=== PATIENT | female | born 1980 | race Caucasian/White ===

== ENCOUNTER 2020-02-20 15:13 | Emergency (ER) | payer OTHER ==
[2020-02-20 15:21] VITALS: TEMP 98.2
[2020-02-20] MEDS ORDERED: MORPHINE SULFATE 4 MG/ML SYRINGE IM STA ×2 (15:36→17:34)
[2020-02-20] MEDS ORDERED: DIAZEPAM 5 MG/ML 2 ML INJ IM STA (15:37)
--- NOTE | 2020-02-20 15:45 | ED ---
General Adult HPI - General Chief complaint: Extremity Injury, Lower Stated complaint: fall/hip & back pain Time Seen by Provider: 02/20/20 15:23 Source: patient Mode of arrival: wheelchair Limitations: no limitations - History of Present Illness Initial comments: Patient is a 39-year-old female with history of herniated lumbar disc presenting to the emergency room with a chief complaint of back pain. Patient states she was holding an object in her hand as she was walking backwards, lost her footing and fell directly on her buttocks. Patient reports sudden onset of pain with pain mostly located on right paraspinal region and urine sent radiating distally along the right lower extremity to the popliteal region. Patient reports it feels like a stabbing, sharp pain. Patient also reports pain in the mid spinal lumbar region. Patient reports taking ibuprofen at home with minimal improvement of symptoms. He states the only alleviating factor is pressure under her right hip. Denies saddle anesthesia, urinary or bowel incontinence. Patient states there is a "0 chance for ". - Related Data Previous Rx's Medication Instructions Recorded tiZANidine [Zanaflex] 4 mg PO Q6HR PRN #24 tab 02/20/20 Allergies Allergy/AdvReac Type Severity Reaction Status Date / Time amoxicillin Allergy Rash/Hives Verified 02/20/20 15:20 Review of Systems ROS Statement: Those systems with pertinent positive or pertinent negative responses have been documented in the HPI. ROS Other: All systems not noted in ROS Statement are negative. Past Medical History Past Medical History: No Reported History History of Any Multi-Drug Resistant Organisms: None Reported Past Surgical History: Cholecystectomy Additional Past Surgical History / Comment(s): hand surgery Past Anesthesia/Blood Transfusion Reactions: No Reported Reaction Past Psychological History: No Psychological Hx Reported Smoking Status: Never smoker Past Drug Use History: None Reported - Past Family History Mother Family Medical History: No Reported History General Exam Limitations: no limitations General appearance: alert, in no apparent distress Head exam: Present: atraumatic, normocephalic, normal inspection Eye exam: Present: normal appearance, PERRL, EOMI Pupils: Present: normal accommodation ENT exam: Present: normal exam Neck exam: Present: normal inspection, full ROM Respiratory exam: Present: normal lung sounds bilaterally Cardiovascular Exam: Present: regular rate, normal rhythm, normal heart sounds Extremities exam: Present: normal inspection, full ROM Back exam: Present: normal inspection, tenderness (Tenderness along the vertebral and right paraspinal region of the lumbar spine. Positive leg raise test. Lumbar radiculopathy type symptoms going to the right lower extremity.), muscle spasm, paraspinal tenderness, vertebral tenderness. Absent: full ROM (Limited range of motion due to pain) Neurological exam: Present: alert, oriented X3 Psychiatric exam: Present: normal affect, normal mood Skin exam: Present: warm, dry, intact, normal color Course Vital Signs 02/20/20 02/20/20 15:19 17:39 Temperature 98.2 F Pulse Rate 85 76 Respiratory 16 18 Rate Blood Pressure 139/99 120/87 O2 Sat by Pulse 98 99 Oximetry Medical Decision Making - Medical Decision Making Patient is a 39-year-old female with history of disc herniation presenting to the emergency department chief complaint of fall. Patient lost her footing and fell back on her buttocks and caused immediate pain along the right lower extremity and lumbar region. Patient denies head injury or loss of consciousness. Patient was given analgesia, Lidoderm patch and antispasmodic medication. CT of lumbar and pelvis was obtained showing disc herniation in the upper and lower lumbar spine. No cauda equina. No red flags. On reevaluation patient reports improvement in symptoms. No signs of fractures or dislocations. Patient will be discharged with a Tylenol 3 starter pack and muscle relaxers. Patient advised about the possible side effects of the medications and not to take them together. Advised to alternate between Tylenol and Motrin for pain control. Advised to follow with librarian specialist. Return to emergency department if symptoms worsen. Case discussed with physician. Disposition Clinical Impression: Fall, Lumbar radiculopathy, right Disposition: HOME SELF-CARE Condition: Good Instructions (If sedation given, give patient instructions): Lumbar Radiculopathy (ED), Lower Back Exercises (ED) Additional Instructions: Follow-up with orthopedic doctor. Return to emergency department if symptoms worsen. Take prescribed medication as directed. Prescriptions: tiZANidine [Zanaflex] 4 mg PO Q6HR PRN #24 tab PRN Reason: Pain Is patient prescribed a controlled substance at d/c from ED?: No Referrals: Jacquie Apple MD [Primary Care Provider] - 1-2 days Time of Disposition: 17:20
--- NOTE | 2020-02-20 16:42 | CT ---
EXAMINATION TYPE: CT lumbar spine wo con DATE OF EXAM: 02/20/2020 COMPARISON: None HISTORY: low back pain following fall CT DLP: 277.5 mGycm Automated exposure control for dose reduction was used. Multiple axial sections were obtained from T11 to S2 vertebra with no contrast. The lumbar vertebra have normal alignment. There is mild narrowing of L4-5 and L5-S1 disc spaces. The posterior elements are intact. There is no compression fracture. There is small posterior disc bulgi ng at L4-5 and L5-S1. There is no lumbar paraspinal mass. I see no focal bone destruction. The sacroi liac joints are intact. There are left renal calculi that measure up to 8 mm. There is no hydronephro sis. IMPRESSION: Spondylotic changes with posterior disc mild bulging and herniation at L4-5 and L5-S1. No spinal sten osis. No compression fracture. Nonobstructing left renal calculi.
--- NOTE | 2020-02-20 16:48 | CT ---
EXAMINATION TYPE: CT pelvis wo con DATE OF EXAM: 02/20/2020 COMPARISON: None HISTORY: right hip pain following fall CT DLP: 593.4 mGycm Automated exposure control for dose reduction was used. Back pain. Right hip pain. Fall. Multiple axial sections were obtained from the iliac crests to the subtrochanteric femurs without con trast. There are bilateral renal calculi that measure up to 8 mm. Visualized kidneys show no hydronephrosis or hydroureter. There is no sign of retroperitoneal adenopathy. There is narrowing of L4-5 and L5-S1 disc spaces. The sacroiliac joints appear normal. The posterior elements appear intact. There is no l umbar paraspinal mass. The acetabula appear normal. The proximal femurs are intact. There is no sign of hip dysplasia. The pelvic ring is intact. Bladder distends smoothly. Uterus is anteverted. There is no evidence of a pelvic solid mass. There i s no free fluid in the pelvis. There is 2.5 cm cyst on the left ovary. IMPRESSION: No fracture. No sign of traumatic injury of the pelvis. Nonobstructing renal calculi. Left ovarian cy st.
[2020-02-20] MEDS ORDERED: LIDOCAINE 5% PATCH TOPICAL STA (17:18)
[2020-02-20] MEDS ORDERED: ACET/COD 300 MG/30 MG STARTER PACK 6 TAB BTL PO STA (17:18)
[2020-02-20] MEDS ORDERED: MORPHINE SULFATE 4 MG/ML SYRINGE IVP STA (17:26)
[2020-02-20 17:40] VITALS: BP 120/87; PULSE 76; RESP 18
== END 2020-02-20 17:43 | disposition home or self-care (01) ==
LOC: EC 15:13
DX: M51.16 Intervertebral disc disorders with radiculopathy, lumbar region (principal); Z88.0 Allergy status to penicillin
CPT/HCPCS: 72192; 72131; 99283; 96372 ×3; J2270; J3360

== ENCOUNTER → 2020-12-28 | Outpatient (CLI) | payer OTHER ==
--- NOTE | 2020-12-28 15:35 | US ---
EXAMINATION TYPE: US thyroid st tissue head/neck DATE OF EXAM: 12/28/2020 COMPARISON: NONE CLINICAL HISTORY: E07.9 Thyroid condition. hair loss. weight loss. GLAND SIZE: Right Lobe: 4.8 x 1.6 x 1.4 cm Overall Parenchyma: heterogenous Left Lobe: 5.5 x 1.7 x 1.4 cm Overall Parenchyma: heterogeneous Isthmus Thickness: 0.4 cm NODULES RIGHT: # of nodules measured on right: 2 1. 0.5 X 0.5 x 0.5 cm, upper mid, solid or almost completely solid, hypoechoic nodule, which is wid e as tall, with smooth margins, without echogenic foci. Prior size: no prior 2. 0.5 X 0.4 x 0.4 cm, lower lateral, solid or almost completely solid, isoechoic nodule, which is wide as tall, with smooth margins, without echogenic foci. Prior size: no prior LEFT: # of nodules measured on left: 0 ISTHMUS: # of nodules measured in the isthmus: 0 Bilateral neck scanned, no evidence of lymphadenopathy. IMPRESSION: Glandular heterogeneity and subcentimeter nonspecific nodules.
== END | disposition home or self-care (01) ==
LOC: RADUSWWP 14:13
PROVIDERS: ATTEND Obstetrics & Gynecology
DX: E04.2 Nontoxic multinodular goiter (principal)
CPT/HCPCS: 76536

== ENCOUNTER 2021-05-12 04:25 | Emergency (ER) | payer OTHER ==
[2021-05-12] MEDS ORDERED: predniSONE 20 MG TAB PO STA (05:33)
--- NOTE | 2021-05-12 06:18 | ED ---
Neck Injury/Pain HPI - General Chief Complaint: Neck Pain/Injury Stated Complaint: Neck Pain Time Seen by Provider: 05/12/21 04:40 Mode of arrival: ambulatory - History of Present Illness MD Complaint: neck pain Onset/Timin -: year(s) Radiation: right upper extremity, left upper extremity Severity: moderate Quality: dull, aching Consistency: constant Improves With: none Worsens With: movement of neck Context: recent chiropractic manipulation Associated Symptoms: numbness, tingling - Related Data Previous Rx's Medication Instructions Recorded tiZANidine [Zanaflex] 4 mg PO Q6HR PRN #24 tab 02/20/20 Acetaminophen-Codeine 300-30mg 1 tab PO Q4H PRN #20 tablet 05/12/21 [Tylenol w/codeine #3] Gabapentin [Neurontin] 100 mg PO TID #60 cap 05/12/21 predniSONE 60 mg PO DAILY #30 tab 05/12/21 Allergies Allergy/AdvReac Type Severity Reaction Status Date / Time amoxicillin Allergy Rash/Hives Verified 05/12/21 04:35 Review of Systems ROS Statement: Those systems with pertinent positive or pertinent negative responses have been documented in the HPI. ROS Other: All systems not noted in ROS Statement are negative. Constitutional: Denies: fever, chills, weakness Respiratory: Denies: cough, dyspnea Cardiovascular: Denies: chest pain, palpitations Musculoskeletal: Reports: back pain Skin: Denies: rash, lesions Neurological: Reports: as per HPI, numbness, paresthesias. Denies: headache, weakness Past Medical History Past Medical History: No Reported History Additional Past Medical History / Comment(s): back problems History of Any Multi-Drug Resistant Organisms: None Reported Past Surgical History: Cholecystectomy Additional Past Surgical History / Comment(s): hand surgery Past Anesthesia/Blood Transfusion Reactions: No Reported Reaction Past Psychological History: No Psychological Hx Reported Smoking Status: Current every day smoker Past Alcohol Use History: None Reported Past Drug Use History: None Reported - Past Family History Mother Family Medical History: No Reported History General Exam General appearance: alert, in no apparent distress Head exam: Present: atraumatic, normocephalic Eye exam: Present: normal appearance. Absent: scleral icterus, conjunctival injection ENT exam: Present: normal oropharynx Neck exam: Present: normal inspection, full ROM. Absent: tenderness, meningismus Respiratory exam: Present: normal lung sounds bilaterally. Absent: respiratory distress, wheezes, rales, rhonchi, stridor Cardiovascular Exam: Present: regular rate, normal rhythm, normal heart sounds. Absent: systolic murmur, diastolic murmur, rubs, gallop GI/Abdominal exam: Present: soft. Absent: distended, tenderness, guarding, rebound, rigid, mass Extremities exam: Present: normal inspection, normal capillary refill Back exam: Absent: paraspinal tenderness, vertebral tenderness Neurological exam: Present: alert. Absent: motor sensory deficit Skin exam: Present: warm, dry, intact, normal color. Absent: rash Course Vital Signs 05/12/21 04:32 Temperature 98.1 F Pulse Rate 92 Respiratory 18 Rate Blood Pressure 139/88 O2 Sat by Pulse 100 Oximetry Disposition Clinical Impression: Cervical radiculopathy, Neck pain Disposition: HOME SELF-CARE Condition: Good Instructions (If sedation given, give patient instructions): Cervical Radiculopathy (ED) Prescriptions: Gabapentin [Neurontin] 100 mg PO TID #60 cap predniSONE 60 mg PO DAILY #30 tab Acetaminophen-Codeine 300-30mg [Tylenol w/codeine #3] 1 tab PO Q4H PRN #20 tablet PRN Reason: Pain Is patient prescribed a controlled substance at d/c from ED?: No Referrals: Jacquie Apple MD [Primary Care Provider] - 1-2 days Sumeet Barrientos DO [Doctor of Osteopathic Medicine] - 1-2 days
--- NOTE | 2021-05-12 06:19 | CT ---
EXAMINATION TYPE: CT cervical spine wo con DATE OF EXAM: 05/12/2021 COMPARISON: None HISTORY: neck pain w/o injury. no prior on PACS CT DLP: 264.8 mGycm Automated exposure control for dose reduction was used. Images obtained from the level of the sella turcica to the T3 vertebra without contrast. Cervical vertebra show some mild straightening. There is some degenerative disc space narrowing at C6 -7 with anterior mild spurring. The posterior elements are intact. Facet joints are intact. There is no evidence of a fracture. The skull base appears intact. There is normal aeration of the mastoid sin uses. I see no focal bone destruction. IMPRESSION: There is some ordinary spondylotic change at C6-7. No fracture seen.
[2021-05-12 06:51] VITALS: BP 150/90; PULSE 57; RESP 16; TEMP 97.7
== END 2021-05-12 07:01 | disposition home or self-care (01) ==
LOC: EC 04:25
DX: M54.12 Radiculopathy, cervical region (principal); M54.2 Cervicalgia; F17.200 Nicotine dependence, unspecified, uncomplicated; Z88.0 Allergy status to penicillin
CPT/HCPCS: 72125; 99284; J7512

== ENCOUNTER 2021-07-03 08:47 | Emergency (ER) | payer OTHER ==
[2021-07-03] MEDS ORDERED: ONDANSETRON 4 MG/2 ML VIAL IVP STA (09:27)
[2021-07-03] MEDS ORDERED: SODIUM CHLORIDE 0.9% 1,000 ML IV STA (09:27)
[2021-07-03] MEDS ORDERED: KETOROLAC 15 MG/ML 1 ML VIAL IVP STA (09:27)
--- NOTE | 2021-07-03 09:35 | ED ---
General Adult HPI - General Chief complaint: Abdominal Pain Stated complaint: Back/side pain/blood in urine Time Seen by Provider: 07/03/21 09:18 Source: patient, RN notes reviewed Mode of arrival: ambulatory Limitations: no limitations - History of Present Illness Initial comments: This is a 40-year-old female who presents to the emergency department a ccompanied by her spouse for evaluation of left flank pain, onset yesterday. States pain is intense, intermittent, and radiates into the back, left groin, and pelvis; also reports urinary frequency and hematuria this morning. Reports waves of nausea, denies vomiting. Patient states she knows she has an 8-10 mm kidney stone in the left side for which she was supposed to follow up with urology approximately a year ago, but did not do so due to time constraints. Patient denies any injury, trauma, fever, chills, chest pain, shortness of breath, constipation, and diarrhea. States last normal menstrual period was 3 weeks ago. Did not attempt to treat pain prior to arrival. - Related Data Previous Rx's Medication Instructions Recorded Ibuprofen [Motrin] 600 mg PO Q8HR PRN #20 tab 07/03/21 Ondansetron Odt [Zofran Odt] 4 mg PO Q8HR PRN #10 tab 07/03/21 Tamsulosin [Flomax] 0.4 mg PO DAILY 7 Days #7 cap 07/03/21 Allergies Allergy/AdvReac Type Severity Reaction Status Date / Time amoxicillin Allergy Rash/Hives Verified 07/03/21 10:54 Review of Systems ROS Statement: Those systems with pertinent positive or pertinent negative responses have been documented in the HPI. ROS Other: All systems not noted in ROS Statement are negative. Past Medical History Past Medical History: No Reported History Additional Past Medical History / Comment(s): back problems, kidney stones History of Any Multi-Drug Resistant Organisms: None Reported Past Surgical History: Cholecystectomy Additional Past Surgical History / Comment(s): hand surgery, Breast Past Anesthesia/Blood Transfusion Reactions: No Reported Reaction Past Psychological History: No Psychological Hx Reported Smoking Status: Current every day smoker Past Alcohol Use History: None Reported Past Drug Use History: None Reported - Past Family History Mother Family Medical History: No Reported History General Exam Limitations: no limitations General appearance: alert, in no apparent distress (Well-developed, well- nourished female in no acute distress. Does appear restless and uncomfortable.) Respiratory exam: Present: normal lung sounds bilaterally. Absent: respiratory distress, wheezes, rales, rhonchi, stridor Cardiovascular Exam: Present: regular rate, normal rhythm, normal heart sounds. Absent: systolic murmur, diastolic murmur, rubs, gallop, clicks GI/Abdominal exam: Present: soft, tenderness, normal bowel sounds. Absent: distended Back exam: Present: CVA tenderness (R), CVA tenderness (L) Neurological exam: Present: alert, oriented X3 Psychiatric exam: Present: normal affect, normal mood Skin exam: Present: warm, dry, intact, normal color Course Vital Signs 07/03/21 07/03/21 07/03/21 08:58 10:37 12:58 Temperature 98.9 F 98.4 F Pulse Rate 87 62 78 Respiratory 20 16 18 Rate Blood Pressure 137/89 122/75 125/80 O2 Sat by Pulse 100 100 99 Oximetry - Reevaluation(s) Reevaluation #1: 07/03/21 10:00 Patient continues to complain of pain unchanged after medicating. Will place additional orders for pain control. 07/03/21 11:[address] at this time. Resting comfortably. States pain level is significantly improved and denies nausea Medical Decision Making - Medical Decision Making 40-year-old female with a history of kidney stones was evaluated for complaints of left flank pain, back pain, and hematuria. IV access was obtained, patient was hydrated, pain medication and nausea medicine given with improvement in symptoms. CT of the abdomen and pelvis confirms presence of bilateral renal calculi. Patient's case was reviewed with my attending. Pain and nausea medications were prescribed for this patient. Flomax was discussed as an option with patient and she is agreeABLE. Urine strainer provided and patient was instructed to follow up with her primary care provider and urology. Return parameters were discussed in detail. Patient verbalizes understanding and AGREES with this plan. - Lab Data Result diagrams: 07/03/21 09:43 07/03/21 09:43 Lab Results 07/03/21 07/03/21 07/03/21 Range/Units 09:43 09:43 09:43 WBC 9.3 (3.8-10.6) k/uL RBC 4.83 (3.80-5.40) m/uL Hgb 15.2 (11.4-16.0) gm/dL Hct 45.4 (34.0-46.0) % MCV 94.1 (80.0-100.0) fL MCH 31.5 (25.0-35.0) pg MCHC 33.5 (31.0-37.0) g/dL RDW 12.1 (11.5-15.5) % Plt Count 204 (150-450) k/uL MPV 7.6 Neutrophils % 78 % Lymphocytes % 15 % Monocytes % 4 % Eosinophils % 1 % Basophils % 0 % Neutrophils # 7.3 (1.3-7.7) k/uL Lymphocytes # 1.4 (1.0-4.8) k/uL Monocytes # 0.4 (0-1.0) k/uL Eosinophils # 0.1 (0-0.7) k/uL Basophils # 0.0 (0-0.2) k/uL Sodium 137 (137-145) mmol/L Potassium 4.2 (3.5-5.1) mmol/L Chloride 107 (98-107) mmol/L Carbon Dioxide 23 (22-30) mmol/L Anion Gap 7 mmol/L BUN 12 (7-17) mg/dL Creatinine 0.66 (0.52-1.04) mg/dL Est GFR (CKD-EPI)AfAm >90 (>60 ml/min/1.73 sqM) Est GFR (CKD-EPI)NonAf >90 (>60 ml/min/1.73 sqM) Glucose 95 (74-99) mg/dL Calcium 9.4 (8.4-10.2) mg/dL Total Bilirubin 0.6 (0.2-1.3) mg/dL AST 23 (14-36) U/L ALT 11 (4-34) U/L Alkaline Phosphatase 51 (38-126) U/L Total Protein 7.4 (6.3-8.2) g/dL Albumin 4.5 (3.5-5.0) g/dL Urine Color Yellow Urine Appearance Cloudy H (Clear) Urine pH 5.0 (5.0-8.0) Ur Specific [place] 1.019 (1.001-1.035) Urine Protein Trace H (Negative) Urine Glucose (UA) Negative (Negative) Urine Ketones Negative (Negative) Urine Blood Large H (Negative) Urine Nitrite Negative (Negative) Urine Bilirubin Negative (Negative) Urine Urobilinogen <2.0 (<2.0) mg/dL Ur Leukocyte Esterase Large H (Negative) Urine RBC 74 H (0-5) /hpf Urine WBC >182 H (0-5) /hpf Ur Squamous Epith Cells 3 (0-4) /hpf Urine Bacteria Rare H (None) /hpf Urine Mucus Rare H (None) /hpf Urine HCG, Qual (Not Detectd) 07/03/21 Range/Units 09:43 WBC (3.8-10.6) k/uL RBC (3.80-5.40) m/uL Hgb (11.4-16.0) gm/dL Hct (34.0-46.0) % MCV (80.0-100.0) fL MCH (25.0-35.0) pg MCHC (31.0-37.0) g/dL RDW (11.5-15.5) % Plt Count (150-450) k/uL MPV Neutrophils % % Lymphocytes % % Monocytes % % Eosinophils % % Basophils % % Neutrophils # (1.3-7.7) k/uL Lymphocytes # (1.0-4.8) k/uL Monocytes # (0-1.0) k/uL Eosinophils # (0-0.7) k/uL Basophils # (0-0.2) k/uL Sodium (137-145) mmol/L Potassium (3.5-5.1) mmol/L Chloride (98-107) mmol/L Carbon Dioxide (22-30) mmol/L Anion Gap mmol/L BUN (7-17) mg/dL Creatinine (0.52-1.04) mg/dL Est GFR (CKD-EPI)AfAm (>60 ml/min/1.73 sqM) Est GFR (CKD-EPI)NonAf (>60 ml/min/1.73 sqM) Glucose (74-99) mg/dL Calcium (8.4-10.2) mg/dL Total Bilirubin (0.2-1.3) mg/dL AST (14-36) U/L ALT (4-34) U/L Alkaline Phosphatase (38-126) U/L Total Protein (6.3-8.2) g/dL Albumin (3.5-5.0) g/dL Urine Color Urine Appearance (Clear) Urine pH (5.0-8.0) Ur Specific [place] (1.001-1.035) Urine Protein (Negative) Urine Glucose (UA) (Negative) Urine Ketones (Negative) Urine Blood (Negative) Urine Nitrite (Negative) Urine Bilirubin (Negative) Urine Urobilinogen (<2.0) mg/dL Ur Leukocyte Esterase (Negative) Urine RBC (0-5) /hpf Urine WBC (0-5) /hpf Ur Squamous Epith Cells (0-4) /hpf Urine Bacteria (None) /hpf Urine Mucus (None) /hpf Urine HCG, Qual Not Detected (Not Detectd) - Radiology Data Radiology results: report reviewed CT of the abdomen and pelvis without contrast was obtained. Impression per Dr. Calhoun includes nonobstructive bilateral nephrolithiasis. Disposition Clinical Impression: Renal calculus, bilateral, Nausea Disposition: HOME SELF-CARE Condition: Stable Instructions (If sedation given, give patient instructions): Kidney Stones (ED), Acute Nausea and Vomiting (ED) Additional Instructions: Rest, increase fluids, strain your urine, take medications as prescribed. Follow-up with your family doctor for recheck in one to 2 days. Call urology for further evaluation and treatment. Return to the emergency department with any new, worsening, or concerning symptoms. Prescriptions: Tamsulosin [Flomax] 0.4 mg PO DAILY 7 Days #7 cap Ibuprofen [Motrin] 600 mg PO Q8HR PRN #20 tab PRN Reason: Pain Ondansetron Odt [Zofran Odt] 4 mg PO Q8HR PRN #10 tab PRN Reason: Nausea Is patient prescribed a controlled substance at d/c from ED?: No Referrals: Jacquie Apple MD [Primary Care Provider] - 1-2 days En Vasquez MD [STAFF PHYSICIAN] - 1-2 days Time of Disposition: 12:35
[2021-07-03 09:51] LABS: Basophils % (A) 0 %; Eosinophils # (A) 0.1 k/uL (0-0.7); Eosinophils % (A) 1 %; HCT 45.4 % (34.0-46.0); HGB 15.2 gm/dL (11.4-16.0); Lymphocytes # (A) 1.4 k/uL (1.0-4.8); Lymphocytes % (A) 15 %; MCH 31.5 pg (25.0-35.0); MCHC 33.5 g/dL (31.0-37.0); MCV 94.1 fL (80.0-100.0); Mean Platelet Volume 7.6; Monocytes # (A) 0.4 k/uL (0-1.0); Monocytes % (A) 4 %; Neutrophils # (A) 7.3 k/uL (1.3-7.7); Neutrophils % (A) 78 %; Platelet Count 204 k/uL (150-450); RBC 4.83 m/uL (3.80-5.40); RDW 12.1 % (11.5-15.5); WBC 9.3 k/uL (3.8-10.6)
[2021-07-03 09:59] LABS: Appearance,Urine Cloudy (Clear); Bacteria,Urine Rare /hpf; Bilirubin,Urine Negative (Negative); Blood,Urine Large (Negative); Color,Urine Yellow; Glucose,Urine (UA) Negative (Negative); Ketones,Urine Negative (Negative); Leukocyte Esterase,Urine Large (Negative); Mucus,Urine Rare /hpf; Nitrite,Urine Negative (Negative); Protein,Urine Trace (Negative); RBC,Urine 74 /hpf (0-5); Specific Gravity,Urine 1.019 (1.001-1.035); Squamous Epithelial Cell,Urine 3 /hpf (0-4); Urobilinogen,Urine <2.0 mg/dL (<2.0); WBC,Urine >182 /hpf (0-5)
[2021-07-03 10:15] LABS: ALT 11 U/L (4-34); AST 23 U/L (14-36); African American GFR (CKD) >90 (>60 ml/min/1.73 sqM); Albumin 4.5 g/dL (3.5-5.0); Alkaline Phosphatase 51 U/L (38-126); Anion Gap 7 mmol/L; Blood Urea Nitrogen 12 mg/dL (7-17); Calcium 9.4 mg/dL (8.4-10.2); Carbon Dioxide 23 mmol/L (22-30); Chloride 107 mmol/L (98-107); Glucose 95 mg/dL (74-99); Non-African American GFR(CKD) >90 (>60 ml/min/1.73 sqM); Potassium 4.2 mmol/L (3.5-5.1); Sodium 137 mmol/L (137-145); Total Bilirubin 0.6 mg/dL (0.2-1.3); Total Protein 7.4 g/dL (6.3-8.2)
[2021-07-03] MEDS ORDERED: MORPHINE SULFATE 4 MG/ML SYRINGE IVP STA (10:24)
--- NOTE | 2021-07-03 11:18 | CT ---
EXAMINATION TYPE: CT abdomen pelvis wo con DATE OF EXAM: 07/03/2021 COMPARISON: None HISTORY: bilateral flank pain, hematuria Examination of the solid and hollow viscera is limited given the lack of contrast. FINDINGS: LUNG BASES: No evidence for nodule. No evidence for infiltrate. LIVER/GB: The gallbladder is unremarkable. No space-occupying hepatic lesion. PANCREAS: No pancreatic mass identified. No inflammatory process seen. SPLEEN: No evidence for splenomegaly. No intrasplenic lesions seen. ADRENALS: No adrenal nodules identified. No evidence for thickening. KIDNEYS: No evidence for renal mass. Bilateral nephrolithiasis. Proximally 4 calculi seen left kidney largest within the lower pole measures 5 mm. Multiple small calculi right kidney totaling approximat aquiles 3 in number with the largest seen within the lower pole measuring 2 mm. I do not see evidence for hydronephrosis or hydroureter. BOWEL: Appendix has a normal appearance. No evidence of bowel obstruction. No inflammatory process. Lymph nodes: No evidence for adenopathy greater than 1 cm. Abdominal aorta: Atheromatous changes seen. No evidence for aneurysm. Genital organs: No significant abnormality. Other: Degenerative changes lumbar spine. IMPRESSION: 1. Nonobstructive bilateral nephrolithiasis.
[2021-07-03] MEDS ORDERED: ACET/COD 300 MG/30 MG STARTER PACK 6 TAB BTL PO STA (12:34)
[2021-07-03 12:58] VITALS: BP 125/80; PULSE 78; RESP 18; TEMP 98.4
== END 2021-07-03 12:58 | disposition home or self-care (01) ==
LOC: EC 08:47
DX: N20.0 Calculus of kidney (principal); R11.0 Nausea; F17.200 Nicotine dependence, unspecified, uncomplicated; Z90.49 Acquired absence of other specified parts of digestive tract; Z88.0 Allergy status to penicillin
CPT/HCPCS: 36415; 80053; 85025; 81001; 81025; 87086; 74176; 99284; 96374; 96375; 96361; J2270; J2405; J1885

== ENCOUNTER → 2021-07-17 | Outpatient (CLI) | payer OTHER ==
--- NOTE | 2021-07-17 13:28 | MR ---
MRI CERVICAL SPINE: CLINICAL HISTORY: Neck pain. Stiffness and numbness in arms and hands. TECHNIQUE: Multiplanar, multisequence imaging of the cervical spine is performed without IV contrast. COMPARISON: CT cervical spine May 22, 2021. FINDINGS: Sagittal images of the cervical spine show the craniocervical junction to remain within nor mal limits. The cervical and upper thoracic spinal cord shows diminished AP diameter at C5-C6 level without abnormal signal. Loss of normal cervical curvature with slight grade 1 retrolisthesis C5 on C 6 and C6 on C7 redemonstrated. Moderate disc space narrowing C6-C7 level otherwise the vertebral body and intravertebral disk heights are normal. The bone marrow signal intensity shows some heterogeneo us Modic type II endplate changes inferior C6 vertebra. Axial images show C2-C3, C3-C4, C4-C5 levels all to remain within normal limits. Axial images at C5-C6 level shows broad-based left paracentral disc protrusion effacing antral left t hecal sac nearly up to ventral surface of spinal cord which is slightly flattened, mild right-sided n eural foraminal narrowing is present due to smaller right foraminal disc protrusion component. Axial images at C6-C7 level shows some posterior spur disc complex effacing anterior thecal sac and c ausing mild right-sided neural foraminal narrowing. Axial images at C7-T1 level appear within normal limits. IMPRESSION: Straightening of cervical spine with spondylolisthesis and degenerative changes C5-C6 and C6-C7 levels as detailed above.
== END | disposition home or self-care (01) ==
LOC: RADMRIMAIN 12:51
PROVIDERS: ATTEND Orthopaedic Surgery
DX: M50.322 Other cervical disc degeneration at C5-C6 level (principal); M50.323 Other cervical disc degeneration at C6-C7 level; M43.12 Spondylolisthesis, cervical region
CPT/HCPCS: 72141

== ENCOUNTER 2024-05-01 09:10 | Emergency (ER) | payer OTHER ==
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
[2024-05-01 10:31] LABS: Basophils % (A) 0 %; Eosinophils # (A) 0.1 k/uL (0-0.7); Eosinophils % (A) 1 %; HCT 45.6 % (34.0-46.0); Lymphocytes # (A) 0.9 k/uL (1.0-4.8); Lymphocytes % (A) 7 %; MCH 30.4 pg (25.0-35.0); MCHC 32.8 g/dL (31.0-37.0); MCV 92.7 fL (80.0-100.0); Mean Platelet Volume 7.7; Monocytes # (A) 0.3 k/uL (0-1.0); Monocytes % (A) 3 %; Neutrophils # (A) 10.6 k/uL (1.3-7.7); Neutrophils % (A) 89 %; Platelet Count 237 k/uL (150-450); RBC 4.92 m/uL (3.80-5.40); RDW 12.5 % (11.5-15.5); WBC 11.9 k/uL (3.8-10.6)
[2024-05-01] MEDS: SODIUM CHLORIDE 0.9% 1,000 ML IV STA (10:42)
[2024-05-01] MEDS: MECLIZINE 12.5 MG TAB PO STA (10:42)
[2024-05-01] MEDS: METOCLOPRAMIDE 5 MG/ML 2 ML VIAL IVP STA (10:44)
[2024-05-01 10:49] LABS: ALT 17 U/L (4-34); AST 24 U/L (14-36); African American GFR (CKD) >90 (>60 ml/min/1.73 sqM); Albumin 4.6 g/dL (3.5-5.0); Alcohol <10 mg/dL; Alkaline Phosphatase 61 U/L (38-126); Anion Gap 6 mmol/L; Blood Urea Nitrogen 10 mg/dL (7-17); Calcium 9.5 mg/dL (8.4-10.2); Carbon Dioxide 21 mmol/L (22-30); Chloride 113 mmol/L (98-107); Glucose 100 mg/dL (74-99); Non-African American GFR(CKD) >90 (>60 ml/min/1.73 sqM); Potassium 4.1 mmol/L (3.5-5.1); Sodium 140 mmol/L (137-145); Total Bilirubin 0.7 mg/dL (0.2-1.3)
[2024-05-01 11:30] LABS: Amphetamine Screen,Urine Not Detected (NotDetected); Barbiturate Screen,Urine Not Detected (NotDetected); Benzodiazepines Screen,Urine Not Detected (NotDetected); Cocaine Screen,Urine Not Detected (NotDetected); Methadone Screen, Urine Not Detected (NotDetected); Opiate Screen,Urine Not Detected (NotDetected); Phencyclidine Screen,Urine Not Detected (NotDetected); Tricyclic Antidepressant,Urine Not Detected (NotDetected); Urn Cannabinoid Scrn Detected (NotDetected)
[2024-05-01 11:31] LABS: Oxycodone Screen, Urine Not Detected (NotDetected)
[2024-05-01 12:06] VITALS: BP 139/83; PULSE 68; RESP 18; TEMP 98
== END 2024-05-01 12:05 | disposition home or self-care (01) ==
LOC: EC 09:10
DX: R42 Dizziness and giddiness (principal); F17.200 Nicotine dependence, unspecified, uncomplicated; Z88.0 Allergy status to penicillin
CPT/HCPCS: 36415; 80053; 83735; 85025; 80306; 99284; 96374; 96361; G0480; J2765; 80320

== ENCOUNTER 2025-02-02 17:31 | Emergency (ER) | payer OTHER ==
[2025-02-02] MEDS: HYDROmorphone 1 MG/ML 1 ML SYRINGE IM STA (18:09)
[2025-02-02] MEDS: KETOROLAC 15 MG/ML 1 ML VIAL IM STA (18:10)
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
[2025-02-02] MEDS: ACET/COD 300 MG/30 MG STARTER PACK 6 TAB BTL PO STA (19:37)
[2025-02-02 19:42] VITALS: BP 132/79; PULSE 74; RESP 18; TEMP 97.9
== END 2025-02-02 19:42 | disposition home or self-care (01) ==
LOC: EC 17:31
DX: S60.221A Contusion of right hand, initial encounter (principal); F17.200 Nicotine dependence, unspecified, uncomplicated; Z88.0 Allergy status to penicillin; W23.0XXA Caught, crushed, jammed, or pinched between moving objects, initial encounter
CPT/HCPCS: 73090; 73130; 99283; 96372 ×2; J1171; J1885